=== PATIENT | female | born 1970 | race Caucasian/White ===

== ENCOUNTER 2023-09-18 20:03 | Emergency (ER) | payer OTHER, SELFPAY ==
[2023-09-18 20:17] VITALS: BP 200/99
[2023-09-18 20:33] LABS: Urine Albumin Trace (Neg - Trace); Urine Bilirubin Negative (Negative); Urine Character Clear (Clear); Urine Color Yellow; Urine Glucose Negative (Negative); Urine Ketone Negative (Negative); Urine Leukocyte Trace (Negative); Urine Nitrite Negative (Negative); Urine Occult Blood Negative (Negative); Urine Urobilinogen Negative (Neg - 1+)
[2023-09-18 20:37] VITALS: BMI 32.7
[2023-09-18 20:46] VITALS: BP 190/91
[2023-09-18 20:46] LABS: Urine Red Blood Cell 0-2 /HPF (0-2)
[2023-09-18 20:47] LABS: Urine Bacteria Few (Negative)
[2023-09-18 21:00] VITALS: BP 194/107
--- NOTE | 2023-09-18 21:04 | ED.GENMED ---
History of Present Illness
General
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
Source: patient
Exam Limitations: none
Time Seen by Provider: 09/18/23 20:41
History of Present Illness
History of Present Illness:
This is a 53 year old female that comes in with c/o just not feeling well. States that she felt like as if she was getting a kidney stone or a UTI. States that she started to feel worse today and had a fever and then vomiting. States that she has
burning with urination and frequency. States that her temp was 100.3 and that she also had diarrhea today. Denies any chills, chest pain, headache, dizziness.
Past History
Past History
ED Past Medical History: HTN, Psychiatric (Anxiety, Depression) and Other (Kidney stone, UTI, pyelonephritis during .)
ED Past Surgical History: Appendectomy, Cholecystectomy, (X 2), Orthopedic (Knee surgery, ) and Urological (Ureteral stent)
Social History
Tobacco: Non-smoker
Alcohol: Occasional
Drug: None
Personal:
Living: with family
Employment: Employed
Family History
Family History: Other (Noncontributory)
Review of Systems
Review of Systems
All Other Systems: ROS reviewed and negative except as documented in HPI and ROS
Constitutional: Reports fever; Denies chills
EENT: Reports no symptoms
Respiratory: Reports no symptoms; Denies cough or trouble breathing
Cardiac: Reports no symptoms; Denies chest pain
ABD/GI: Reports nausea, vomiting and diarrhea; Denies abdominal pain
: Reports dysuria and frequency; Denies urgency
Musculoskeletal: Reports no symptoms
Skin: Reports no symptoms
Neurological: Reports no symptoms; Denies dizzy or headache
Psychiatric: Reports no symptoms
Phy Exam
General Physical Exam
General Presentation: no apparent distress
General age: appears stated age
General Skin: warm and dry
General Habitus: normal
General Mental: alert
General Hydration: appears well hydrated
ENT Exam
ENT Exam: TM's normal, pharynx normal and neck supple
Eye Exam
Eye Exam: EOMI
Cardiovascular Exam
Cardiovascular Exam: regular rate/rhythm, no edema, no murmur and normal peripheral pulses
Pulmonary Exam
Pulmonary Exam: lungs clear, no respiratory distress, no rales, chest non tender, no crackles, no rhonchi, no wheezing and no cough
Gastrointestinal Exam
Gastrointestinal Exam: normal bowel sounds, soft, no organomegaly, no pulsatile mass, non distended and tender (Slight left sided tenderness with palpation)
Musculoskeletal Exam
Musculoskeletal Exam: full ROM and no edema
Skin Exam
Skin Exam: normal color, warm/dry, no rash, no petechia and other (Pealing skin on forehead from Sunburn)
Psychiatric Exam
Psychiatric Exam: normal mood/affect
Course
Orders/Labs/Results
Orders:
Orders
09/18/23 20:23
Urine Culture Reflexed from UA [Urinalysis Reflex To Culture] Urgent
Date Specimen was Collected: 09/18/23
Time Specimen was Collected: 20:20
Urine Microscopic Reflex Cult Urgent
09/18/23 21:03
CT Abd/pelvis W Iv Cont Urgent
Comment:
Reason For Exam: left sided tenderness.
0.9% Sodium Chloride 1000 ml [Nss] 1,000 ml IV BOLUS
Ondansetron Injectable [Zofran] 4 mg IV NOW STA
09/18/23 21:13
Complete Blood Count/With Diff Urgent
Comprehensive Metabolic Panel Urgent
Lactic Acid Urgent
Lipase Urgent
Abnormal Lab Results
09/18/23 09/18/23
20:23 21:13
RBC 3.78 L 10^6/uL
(4.20-5.40)
Hgb 11.7 L g/dL
(12.0-16.0)
Hct 33.0 L %
(37.0-47.0)
Absolute Lymphs (auto) 0.4 L 10^3/uL
(1.2-3.4)
Neutrophils % 82.5 H %
(42.2-75.2)
Lymphocytes % 7.5 L %
(20.5-51.1)
Glucose 105 H mg/dl
(70-99)
Leukocyte Esterase Rfl Trace A
(Negative)
Urine Bacteria (Reflex) Few A
(Negative)
09/18/23 21:13
09/18/23 21:13
Urine negative for infection, H/H slightly low, Glucose nonfasting. Urine negative for infection. Lactic acid normal at 1.7, Lipase normal at 86
Vital Signs
Initial and Last Documented VS:
Initial Vital Signs
Temp Pulse Resp BP Pulse Ox
99.0 F 105 20 200/99 99
09/18/23 20:17 09/18/23 20:17 09/18/23 20:17 09/18/23 20:17 09/18/23 20:17
Last Documented Vital Signs
Temp Pulse Resp BP Pulse Ox
99.0 F 93 16 151/83 96
09/18/23 20:17 09/18/23 22:29 09/18/23 22:29 09/18/23 23:00 09/18/23 23:15
MDM/Problems Addressed
Differential Diagnosis Includes:
Renal calculous, Diverticulitis, UTI
MDM/Problems Addressed:
This is a 53 year old female that comes in with c/o just not feeling good. States that she feels as if she is getting a kidney stone or a UTI.
Will get labs CT scan, give IV fluids and medicate with antiemetic.
Back into see patient. Explained that her blood work is normal and her urine is negative for infection. Lactic acid is normal. Reviewed CT scan. Explained that since she was out in the sun she may have been a little Dehydrated even though this did
not show up in her blood work. Patient to increase her water intake to 8-8oz glasses daily. Follow up with the family doctor. Return with any concerns.
Chronic conditions affecting care:
Renal calculus, UTI
Acute Exacerbation and/or Progression of Chronic Illness:
UTi, renal calculus
*Radiology
Radiology exam reviewed: radiology read reviewed (CT-NO acute pathhology of the abdomen or pelvis identified. Simple left ovarian cyst. New. Myomatous uterus. Stable. Mild diverticulosis. Stable. Nonobstructing right renal stone. Decreased in size.
)
*Pulse Oximetry
Patient hypoxic: no
*EKG
Interpreted by ED Provider?: NA
Rate: EKG- N/A
*Fitness Worker Interpretation
Rate: Fitness Worker- N/A
*Critical Care Note
Total Time (30-74mins, 75-104mins- exclusive of procedures): Not Applicable
ED Attending Note
-
Portions of this chart may have been created with voice recognition software.� Occasional wrong word or��sound alike� substitutions may have occurred due to the inherent limitations of voice recognition software.
Discharge Plan
Departure
Patient Disposition: Home (Routine Discharge)
Date of Disposition: 09/18/23
Time of Disposition: 23:37
Patient with high blood pressure during this ER visit?: Yes
Condition: Good
Covid-19: Not Applicable
Discharge Problem:
Nausea & vomiting
Instructions: Nausea and vomiting in adults, BLOOD PRESSURE
Prescriptions:
No Action
lorazepam 1 mg Tablet
1 mg PO BID PRN (Reason: anxiety)
Patient Comments:
02/07/2022: last filled 01/15/22, 60 tabs for [address] [id number]
fluoxetine 40 mg capsule
40 mg PO DAILY
amlodipine 5 mg tablet
5 mg PO DAILY
levofloxacin 500 mg tablet
500 mg PO DAILY
phenazopyridine 200 mg tablet
200 mg PO TID PRN (Reason: dysuria)
Referrals:
Luann Marc MD [Family Provider] - Call in 1-3 days for appt
Activity Restrictions/Additional Instructions:
As discussed, your blood work is normal along with our Lactic acid. Your CT shows that you have a small left ovarian cyst, a Uterine fibroid and there are some right kidney stones but they usually do not cause discomfort until they get in the
ureter. You may have been dehydrated from the nausea and vomiting and the sunburn. Please increase your water intake to 8-8oz glasses daily. Follow up with the family doctor. This may be also a viral illness. IF YOU HAVE ANY OTHER CONCERNS PLEASE
RETURN TO THE EMERGENCY ROOM.
Interventions
Interventions:
*Risk Screen - Suicide Last Done: 09/18/23 20:17
*General Assessment Last Done: 09/18/23 20:17
*Neglect/Abuse Screening Last Done: 09/18/23 20:17
ED- Fall Risk Assessment Last Done: 09/18/23 20:41
*ED COVID-19 Vaccine History Last Done: 09/18/23 20:37
ED-Female Genitourinary Assessment Last Done: 09/18/23 20:37
Discharge Date and Time
Print Language: ANGUILLAN
[2023-09-18] MEDS: NSS 1000 IV (21:09)
[2023-09-18] MEDS: ZOFRAN 4 MG IV (21:09)
[2023-09-18 21:21] LABS: % Basophils 0.5 % (0-2); % Eosinophils 1.1 % (0-6); % Immature Granulocytes 0.5 % (0-0.5); % Lymphocytes 7.5 % (20.5-51.1); % Monocytes 7.9 % (1.7-9.3); % Neutrophils 82.5 % (42.2-75.2); Absolute Eosinophils 0.1 10^3/uL (0-0.7); Absolute Lymphocytes 0.4 10^3/uL (1.2-3.4); Absolute Monocytes 0.4 10^3/uL (0.1-0.6); Absolute Neutrophils 4.6 10^3/uL (1.4-6.5); Hemoglobin 11.7 g/dL (12.0-16.0); Mean Corp Hgb Conc. 35.5 g/dL (33.0-37.0); Mean Corpuscular Volume 87.3 fL (81.0-99.0); Mean Platelet Volume 9.6 fL (7.4-10.4); Nucleated Red Blood Cells % 0 %; Platelet Count 166 10^3/uL (130-400); Red Blood Cell Count 3.78 10^6/uL (4.20-5.40); White Blood Cell Count 5.6 10^3/uL (4.8-10.8)
[2023-09-18 21:34] LABS: Lactic Acid 1.7 mmol/L (0.7-2.0)
[2023-09-18 21:44] LABS: ALT (SGPT) 27 U/L (0-35); AST (SGOT) 27 U/L (14-36); Albumin 4.5 g/dl (3.5-5.0); Alkaline Phosphatase 91 U/L (38-126); Blood Urea Nitrogen 9 mg/dl (7-17); Calcium 9.4 mg/dl (8.4-10.2); Carbon Dioxide 22 mmol/L (22-30); Chloride 104 mmol/L (98-107); Estimated Creatinine Clearance 113 ml/min; Glucose 105 mg/dl (70-99); Lipase 86 U/L (23-300); Potassium 3.9 mmol/L (3.5-5.1); Sodium 136 mmol/L (135-145); Total Bilirubin 0.9 mg/dl (0.2-1.3); Total Protein 6.6 g/dl (6.3-8.2); eGFR > 60.00
[2023-09-18 22:27] VITALS: BP 136/61
[2023-09-18 23:00] VITALS: BP 151/83
[2023-09-18 23:50] VITALS: BP 157/88
== END 2023-09-18 23:56 | disposition home or self-care (01) ==
LOC: EMR 20:03
PROVIDERS: Student in an Organized Health Care Education/Training Program; EMERGENCY PHYSICIAN Emergency Medicine; FAMILY PHYSICIAN Family Medicine
DX: R11.2 Nausea with vomiting, unspecified (principal); R19.7 Diarrhea, unspecified; R30.0 Dysuria; R35.0 Frequency of micturition; R30.9 Painful micturition, unspecified; D25.9 Leiomyoma of uterus, unspecified; K57.90 Diverticulosis of intestine, part unspecified, without perforation or abscess without bleeding; N83.202 Unspecified ovarian cyst, left side; N20.0 Calculus of kidney; I10 Essential (primary) hypertension; F41.9 Anxiety disorder, unspecified; F32.A Depression, unspecified; Z90.49 Acquired absence of other specified parts of digestive tract; Z87.442 Personal history of urinary calculi; Z87.440 Personal history of urinary (tract) infections
CPT/HCPCS: 99284; 96361; 96374; 74177; 80053; 81003; 81015; 83605; 83690; 85025; Q9967